=== PATIENT | male | born 1975 | race Caucasian/White ===

== ENCOUNTER → 2022-01-13 12:34 | Outpatient (CLI) | payer BC, SELFPAY ==
--- NOTE | ~2022-01-13 | XR_ITS ---
XR fl inj shoulder RT - MR/CT DATE: 01/13/2022 14:03 INDICATION: Rotator cuff syndrome. Fluoroscopically guided percutaneous MR multi-Herman contrast agent intra-articular injection at glenohumeral joint for MRI shoulder examination TECHNIQUE: The purpose of the procedure, technique and potential competitions were discussed with the patient. The patient indicated understanding and gave consent. Timeout procedure confirmed proper patient, procedure and sidedness. The skin over the anterior aspec t of the right shoulder was prepared with sterile Betadine solution. Sterile drape was applied. Local anesthetic was administered to the skin and underlying subcutaneous tissues. Using fluoroscopic guidance, a 22-gauge spinal needle was introduced into the right glenohumeral join t space from an anterior approach. 12 CC solution containing a combination of multi-Herman, Omnipaque 350 and lidocaine was injected into the joint, with fluoroscopic confirmation of intra-articular posi tion. The needle was then withdrawn. The patient tolerated the procedure very well, without complaint or ap parent complication. COMPARISON: None FINDINGS: IMPRESSION: Pre-MRI right glenohumeral intra-articular injection of MultiHance contrast material with fluoroscopic guidance Reviewed, dictated and finalized at [facility]. Reviewed, dictated and finalized at [facility].
--- NOTE | ~2022-01-13 | MR_ITS ---
EXAMINATION: MR shoulder RT w con DATE: 01/13/2022 14:36 INDICATION: Right shoulder pain. Rotator cuff syndrome. TECHNIQUE: Magnetic resonance imaging (MRI) of the right shoulder was performed without intravenous c ontrast after intra-articular injection of contrast (MR arthrogram). COMPARISON: None. FINDINGS: Coracoacromial arch: The acromion undersurface is flat in morphology (type I). There is mild acromioclavicular joint osteo arthritis. There is mild subacromial/subdeltoid bursitis. Rotator cuff: There is an interstitial tear of the conjoined portion of supraspinatus and infraspinatus tendons at the distal attachment measuring 10 mm anterior to posterior by 2 mm proximal to distal by 40% tendon thickness. Teres minor tendon is normal. Subscapularis tendon is normal. There is no asymmetric fatty atrophy of the rotator cuff muscle bellies. Biceps tendon and glenoid labrum: Biceps tendon is in bicipital groove. Intra-articular biceps tendon is normal. There is a tear of gle noid labrum from 10:00 to 12:00 (SLAP tear). Fluid: The glenohumeral joint is well distended by contrast. Bones/cartilage: The glenoid cartilage is normal. Humeral head cartilage is normal. IMPRESSION: 1. Partial-thickness interstitial tear of the conjoined portion of supraspinatus and infraspinatus te ndons at its distal attachment. 2. SLAP tear. 3. Mild acromioclavicular joint osteoarthritis. 4. Mild subacromial/subdeltoid bursitis. Reviewed, dictated and finalized at [facility]. IMPRESSION: 1. Partial-thickness interstitial tear of the conjoined portion of supraspinatu s and infraspinatus tendons at its distal attachment. 2. SLAP tear. 3. Mild acromioclavicular joint osteoarthritis. 4. Mild subacromial/subdeltoid bursitis.
== END ==
PROVIDERS: PCP Chiropractor; Visit Provider Chiropractor
DX: M75.101 Unspecified rotator cuff tear or rupture of right shoulder, not specified as traumatic (principal); M19.011 Primary osteoarthritis, right shoulder; M75.51 Bursitis of right shoulder
CPT/HCPCS: 23350; 73222; 77002; A9577; Q9967